=== PATIENT | female | born 1980 | race Caucasian/White ===

== ENCOUNTER 2016-09-05 21:04 | Emergency (ER) | payer OTHER ==
[2016-09-05 22:24] LABS: BASOPHIL 0.8 % (0-2); EOSINOPHIL 2.3 % (0-5); HCT 36.8 % (37.0-47.0); HGB 12.2 g/dl (12.5-16.0); LYMPHOCYTE 27.1 % (15-48); MCH 26.1 pg (25.0-31.0); MCHC 33.2 g/dL (32.0-36.0); MCV 78.8 fL (78.0-100.0); MONOCYTE 8.2 % (0-12); MPV 10.5 fL (6.0-9.5); NEUTROPHIL 61.6 % (41-80); PLT 294 K/uL (150-400); RBC 4.67 M/uL (4.20-5.40); RDW 15.3 % (11.5-14.0); WBC 9.8 K/uL (4.0-10.5)
[2016-09-05 22:33] LABS: INR 1.04 (0.9-1.2); PROTHROMBIN TIME 13.2 SECONDS (11.7-14.0); PTT 25.9 SECONDS (23.2-31.4)
[2016-09-05 22:35] LABS: D-DIMER 0.32 ug/mLFEU (0.00-0.41)
[2016-09-05 22:40] LABS: ALBUMIN 4.1 g/dL (3.5-5.0); BILIRUBIN - TOTAL 0.4 mg/dL (0.1-1.0); GLOBULIN (CALCULATION) 3.2 g/dL (2.2-4.2); MAGNESIUM 2.13 mg/dL (1.40-2.10); TOTAL PROTEIN 7.3 g/dL (6.4-8.3)
[2016-09-05 22:43] LABS: CKMB 1.44 ng/mL (0.97-4.94); MYOGLOBIN 26 ng/mL (26-65); PRO-BNP 35 pg/mL (0-125); TROPONIN T < 0.010 ng/mL
== END 2016-09-05 23:45 | disposition home or self-care (01) ==
LOC: FER 21:04
PROVIDERS: Emergency Medicine
DX: R07.9 Chest pain, unspecified (principal); F32.9 Major depressive disorder, single episode, unspecified; Z86.718 Personal history of other venous thrombosis and embolism; Z85.43 Personal history of malignant neoplasm of ovary; Z90.49 Acquired absence of other specified parts of digestive tract; Z90.710 Acquired absence of both cervix and uterus; Z98.51 Tubal ligation status; Z79.899 Other long term (current) drug therapy
CPT/HCPCS: 36415; 71010; 80053; 82550; 82553; 83735; 83874; 83880; 84484; 85025; 85379; 85610; 85730; 93005

== ENCOUNTER → 2016-10-05 | Day surgery (SDC) | payer OTHER | END | disposition home or self-care (01) | LOC: FAS 06:01 | DX: G56.03 Carpal tunnel syndrome, bilateral upper limbs (principal); K21.9 Gastro-esophageal reflux disease without esophagitis; M19.90 Unspecified osteoarthritis, unspecified site; Z79.899 Other long term (current) drug therapy; Z90.49 Acquired absence of other specified parts of digestive tract; Z90.710 Acquired absence of both cervix and uterus; Z98.890 Other specified postprocedural states; Z86.718 Personal history of other venous thrombosis and embolism | CPT/HCPCS: J1100; J1885; J2405; J2704; J3010 ==

== ENCOUNTER 2020-08-22 23:30 | Emergency (ER) | payer OTHER ==
[~2020-08-22 23:30] MED LIST: ATIVAN0.5 MG PO; FIORICET1 EACH PO; NORCO 5-325 TA1 EACH PO; PROTONIX 40MG T40 MG PO; ROBAXIN750 MG PO; WELLBUTRIN SR150 MG PO; XARELTO20 MG PO; ZOFRAN4 MG PO; ZOLOFT100 MG PO
== END 2020-08-23 01:15 | disposition left against medical advice (07) ==
LOC: FER 23:30
DX: M25.532 Pain in left wrist (principal); M79.642 Pain in left hand; Z53.8 Procedure and treatment not carried out for other reasons
CPT/HCPCS: 73110

== ENCOUNTER 2021-01-10 01:16 | Emergency (ER) | payer OTHER ==
[2021-01-10 02:08] LABS: BASOPHIL 0.9 % (0-2); HCT 40.7 % (37.0-47.0); HGB 12.9 g/dl (12.5-16.0); LYMPHOCYTE 29.4 % (15-48); MCH 26.7 pg (25.0-31.0); MCHC 31.7 g/dL (32.0-36.0); MCV 84.1 fL (78.0-100.0); MONOCYTE 6.6 % (0-12); MPV 10.7 fL (6.0-9.5); NEUTROPHIL 60.7 % (41-80); NRBC 0; PLT 268 K/uL (150-400); RBC 4.84 M/uL (4.20-5.40); RDW 14.2 % (11.5-14.0); WBC 11.8 K/uL (4.0-10.5)
[2021-01-10 02:12] LABS: INR 1.7 (0.9-1.2); PROTHROMBIN TIME 19.2 SECONDS (11.8-13.4)
[2021-01-10 02:19] LABS: ALBUMIN 3.5 g/dL (3.4-5.0); BILIRUBIN - TOTAL 0.5 mg/dL (0.2-1.0); BUN/CREAT RATIO (CALC) 21.5 RATIO; CREATININE 0.79 mg/dL (0.51-0.95); GLOBULIN (CALCULATION) 3.7 g/dL; POTASSIUM 3.7 mmol/L (3.5-5.1); TOTAL PROTEIN 7.2 g/dL (6.4-8.2)
== END 2021-01-10 04:25 | disposition home or self-care (01) ==
LOC: FER 01:16
PROVIDERS: Emergency Medicine
DX: R51.9 Headache, unspecified (principal); I82.409 Acute embolism and thrombosis of unspecified deep veins of unspecified lower extremity; Z79.01 Long term (current) use of anticoagulants; Z86.69 Personal history of other diseases of the nervous system and sense organs; Z20.822 Contact with and (suspected) exposure to COVID-19
CPT/HCPCS: 36415; 70450; 80053; 85025; 85610; J1170; J1885; J1953; J2001; J2405; J7030; U0002